=== PATIENT | female | born 1990 | race Hispanic/Latino ===

== ENCOUNTER 2020-03-10 22:47 | Emergency (ER) | payer MEDICARE ==
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
== END 2020-03-11 03:10 ==
LOC: ED 22:47
DX: I46.9 Cardiac arrest, cause unspecified (principal); F25.9 Schizoaffective disorder, unspecified; Z98.890 Other specified postprocedural states; Z88.8 Allergy status to other drugs, medicaments and biological substances